=== PATIENT | female | born 1945 | race Caucasian/White ===

== ENCOUNTER 2022-11-07 06:24 | Day surgery (SDC) | payer MEDICARE, OTHER, SELFPAY ==
[2022-11-02 15:55] VITALS: BMI 25.6
--- NOTE | 2022-11-04 08:03 | MHC.SHP ---
Pre-Procedural Eval Section A Date of Service: 11/04/22 The patient is an INPATIENT: No Changes since office visit: No Cold of Flu in the past 2 weeks, No New Medical Problems, No Changes in Medication and No Patient answered all questions The History & Physical has been completed within 30 days and I have reviewed it.: Yes Section B Chief Complaint: Age-related nuclear cataract, right eye Allergies: Allergies Allergy/AdvReac Type Severity Reaction Status Date / Time No Known Allergies Allergy Verified 11/01/22 16:44 Plan Diagnosis/Plan: Unchanged I have reviewed the history and physical and performed a pertinent physical examination on my patient. No changes have occurred unless specified. Time Spent With Patient Time: Total time managing care of this patient today ____ minutes.
[2022-11-07] MEDS: Tetracaine HCl/PF 0.5% Oph Sol 4 ML DROPS 1 DROP EYE-RIGHT (07:03)
[2022-11-07] MEDS: Ketorolac Tromethamine 0.5% Op 5 ML DROPS 1 DROP EYE-RIGHT ×3 (07:03→07:04)
[2022-11-07] MEDS: Cyclopentolate 1 % Ophth Sol 2 ML DRPBTL 1 DROP EYE-RIGHT ×3 (07:03→07:04)
[2022-11-07] MEDS: Tropicamide 1 % Ophth Sol 3 ML BTL 1 DROP EYE-RIGHT ×3 (07:03→07:04)
[2022-11-07] MEDS: Phenylephrine HCL 2.5% Oph SoL 2 ML BOTTLE 1 DROP EYE-RIGHT ×3 (07:04→07:05)
[2022-11-07 07:05] VITALS: BP 147/76; PULSE 67; RESP 20; TEMP 36.1; O2SAT 98
--- NOTE | 2022-11-07 07:18 | P.CONAN_ITS ---
HPI - Anesthesia Eval Consult details Narrative: 77 F for right cataract extraction with intraocular lens insertion [facility] Past Medical History Medical History (Updated 11/01/22 @ 16:42 by Lilia Quiñones RN) History of wrist fracture Cataract Osteoporosis Seasonal allergies Family History Family History (Updated 11/01/22 @ 16:44 by Lilia Quiñones RN) Brother AAA (abdominal aortic aneurysm) Brother AAA (abdominal aortic aneurysm) Brother AAA (abdominal aortic aneurysm) Mother Colon cancer Father Sudden Family history of problems with anesthesia: No Surgical History Surgical History (Updated 11/01/22 @ 16:42 by Lilia Quiñones RN) Hx of appendectomy Hx of colonoscopy History of Problems with Anesthesia: No Social History Social History (Updated 11/02/22 @ 15:58 by Lilia Quiñones RN) Household Members: None Housing: House Are you a primary wound care coordinator to a significant other at home: No Do you presently have visiting nurse or other home services: No Patient Tobacco Use Status: Never used Tobacco Use of substances other than those prescribed or required for medical reasons: No Have you been hit, kicked, punched, or otherwise hurt by someone within the past year? If so, by whom?: No Are you DNR?: No Advance Directives: No Advance Directives Information Provided: Yes Advance Directives on File: No Recently lost weight without trying: No Nutrition Risks: No Nutritional Risk Meds Allergies Allergy/AdvReac Type Severity Reaction Status Date / Time No Known Allergies Allergy Verified 11/01/22 16:44 Active Medications: Current Medications Povidone Iodine (Povidone Iodine 5 % Ophth Soln 30 Ml Bottle) 1 appl EYE-RIGHT PREOP PRN PRN Reason: Pre-Op Surgical Implant Prophy Home Medications Medication Instructions Recorded Confirmed Last Taken Type No Known Home Meds 11/02/22 11/02/22 Unknown History Exam Exam Date and Time: November 07, 202218 Height,Weight and Vital Signs: Height 5 ft 4 in Weight 67.585 kg Last Vital Signs Temp 97 F 11/07/22 07:05 Pulse 67 11/07/22 07:05 Resp 20 11/07/22 07:05 BP 147/76 H 11/07/22 07:05 Pulse Ox 98 11/07/22 07:05 O2 Del Method Room Air 11/07/22 07:05 Airway Mallampati Class: IV Loose/Missing/Broken Teeth: Yes Assessment and Plan Assessment Anesthesia Assessment: Anesthesia Plan Discussed and Chart Reviewed Final Anesthetic Review Family History of Problems with Anesthesia: No History of Problems with Anesthesia: No NPO: Yes ASA Class: I Final Preanesthetic Review: Meds/Allgs Chart Reviewed, Consent Obtained/Reviewed and Anes Risks/Benef Reviewed Patient Risk: Intermediate Procedure Risk: Intermediate Anesthetic Plan Anesthetic Plan: MAC: Disposition: Standard PACU
--- NOTE | 2022-11-07 07:49 | HO.PNOPHT ---
Ophthalmology Procedure Procedure Date of Service: 11/07/22 Ophthalmology Viscoelastic: Healon Duet Dual Pack Pro Ophthalmology Lenses: TECNIS [id number] (21.5) Procedure Notes: PREOPERATIVE DIAGNOSIS: Decreased visual acuity right eye secondary to cataract POSTOPERATIVE DIAGNOSIS: Same PROCEDURE: Right cataract extraction with intraocular lens insertion SURGEON: Georgi Barclay M.D. ANESTHESIA: Topical/MAC ESTIMATED BLOOD LOSS: None COMPLICATIONS: None After obtaining informed consent, the patient was brought to the operating room suite and placed in the supine position. After adequate sedation per anesthesia, topical drops of Tetracaine were given to the right eye. The eye was then prepped and draped in the usual sterile fashion. The operating room microscope was then positioned over the operative eye and a lid speculum placed. A paracentesis was created. Viscoelastic was then instilled into the anterior chamber. A three plane incision was then created temporally, utilizing a 2.85 mm keratome. Capsulotomy forceps were then utilized to create a circular tear capsulotomy. Hydrodissection and hydrodelineation were carried out until adequate mobilization of the nucleus occurred. Phacoemulsification was then utilized to remove the dense central nucleus followed by removal of the cortical material utilizing the automated aspiration irrigation unit. Viscoelastic was instilled into the posterior capsular bag followed by placement of a posterior chamber intraocular lens without difficulty. The residual Viscoelastic was then removed utilizing the automated IA machine. The wound was checked and found to be watertight. The patient tolerated the procedure well and the lid speculum was removed. Intracameral injection of Vigamox 0.1 mL followed by a subtenon injection of Kenalog-40 0.2 mL were administered. The patient will be seen in the a.m.
[2022-11-07 08:12] VITALS: BP 161/82; PULSE 61; RESP 16; TEMP 36.3; O2SAT 99
== END 2022-11-07 08:29 | disposition home or self-care (01) ==
PROVIDERS: PCP Nurse Practitioner Family; Visit Provider Ophthalmology
PROC: (CPT 66985; principal; 2022-11-07 08:00)
DX: H25.11 Age-related nuclear cataract, right eye (principal); H54.7 Unspecified visual loss
CPT/HCPCS: 66984; J2250; J3010; J3301; V2632

== ENCOUNTER 2022-11-21 06:47 | Day surgery (SDC) | payer MEDICARE, OTHER, SELFPAY ==
[2022-11-02 15:58] VITALS: BMI 25.6
--- NOTE | 2022-11-18 07:31 | MHC.SHP ---
Pre-Procedural Eval Section A Date of Service: 11/18/22 The patient is an INPATIENT: No Changes since office visit: No Cold of Flu in the past 2 weeks, No New Medical Problems, No Changes in Medication and No Patient answered all questions The History & Physical has been completed within 30 days and I have reviewed it.: Yes Section B Chief Complaint: Age-related nuclear cataract, left eye Allergies: Allergies Allergy/AdvReac Type Severity Reaction Status Date / Time No Known Allergies Allergy Verified 11/01/22 16:44 Plan Diagnosis/Plan: Unchanged I have reviewed the history and physical and performed a pertinent physical examination on my patient. No changes have occurred unless specified. Time Spent With Patient Time: Total time managing care of this patient today ____ minutes.
--- NOTE | 2022-11-18 10:46 | P.CONAN_ITS ---
Documented by User: Arcelia Baird NP 11/18/22 10:46 HPI - Anesthesia Eval Consult details Narrative: 77yo F for Left Cataract Extraction IOL Insertion PCP cleared Right eye 11/07/22: Fent 50, Midaz 1 PMFSH Past Medical History Medical History (Updated 11/01/22 @ 16:42 by Lilia Quiñones, RN) History of wrist fracture Cataract Osteoporosis Seasonal allergies Family History Family History (Updated 11/01/22 @ 16:44 by Lilia Quiñones RN) Brother AAA (abdominal aortic aneurysm) Brother AAA (abdominal aortic aneurysm) Brother AAA (abdominal aortic aneurysm) Mother Colon cancer Father Sudden Family history of problems with anesthesia: No Surgical History Surgical History (Updated 11/01/22 @ 16:42 by Lilia Quiñones RN) Hx of appendectomy Hx of colonoscopy History of Problems with Anesthesia: No Social History Social History (Updated 11/02/22 @ 15:58 by Lilia Quiñones RN) Household Members: None Housing: House Are you a primary transitional care nurse to a significant other at home: No Do you presently have visiting nurse or other home services: No Patient Tobacco Use Status: Never used Tobacco Use of substances other than those prescribed or required for medical reasons: No Have you been hit, kicked, punched, or otherwise hurt by someone within the past year? If so, by whom?: No Are you DNR?: No Advance Directives: No Advance Directives Information Provided: Yes Advance Directives on File: No Recently lost weight without trying: No Nutrition Risks: No Nutritional Risk Meds Allergies Allergy/AdvReac Type Severity Reaction Status Date / Time No Known Allergies Allergy Verified 11/01/22 16:44 Home Medications Medication Instructions Recorded Confirmed Last Taken Type No Known Home Meds 11/02/22 11/02/22 Unknown History Exam Exam Date and Time: November 18, 2022 1046 Height,Weight and Vital Signs: Height 5 ft 4 in Weight 67.585 kg Assessment and Plan Assessment Anesthesia Assessment: Chart Reviewed Final Anesthetic Review Family History of Problems with Anesthesia: No History of Problems with Anesthesia: No Documented by User: Miguel Bagley MD 11/21/22 07:13 [facility] Past Medical History Medical History (Updated 11/01/22 @ 16:42 by Lilia Quiñones, RN) History of wrist fracture Cataract Osteoporosis Seasonal allergies Family History Family History (Updated 11/01/22 @ 16:44 by Lilia Quiñones, RN) Brother AAA (abdominal aortic aneurysm) Brother AAA (abdominal aortic aneurysm) Brother AAA (abdominal aortic aneurysm) Mother Colon cancer Father Sudden Surgical History Surgical History (Updated 11/01/22 @ 16:42 by Lilia Quiñones, RN) Hx of appendectomy Hx of colonoscopy Social History Social History (Updated 11/02/22 @ 15:58 by Lilia Quiñones, JOSETTE) Household Members: None Housing: House Are you a primary transitional care nurse to a significant other at home: No Do you presently have visiting nurse or other home services: No Patient Tobacco Use Status: Never used Tobacco Use of substances other than those prescribed or required for medical reasons: No Have you been hit, kicked, punched, or otherwise hurt by someone within the past year? If so, by whom?: No Are you DNR?: No Advance Directives: No Advance Directives Information Provided: Yes Advance Directives on File: No Recently lost weight without trying: No Nutrition Risks: No Nutritional Risk Meds Allergies Allergy/AdvReac Type Severity Reaction Status Date / Time No Known Allergies Allergy Verified 11/01/22 16:44 Home Medications Medication Instructions Recorded Confirmed Last Taken Type No Known Home Meds 11/02/22 11/02/22 Unknown History Exam Airway Mallampati Class: II TM Dist: >3cm Neck ROM: Full Loose/Missing/Broken Teeth: No Heart: [id number] Lungs: cta b/l Assessment and Plan Assessment Anesthesia Assessment: Anesthesia Plan Discussed Final Anesthetic Review NPO: Yes ASA Class: II Final Preanesthetic Review: No Changes in Pt Med Stat, Meds/Allgs Chart Reviewed, Consent Obtained/Reviewed and Anes Risks/Benef Reviewed Patient Risk: Low Procedure Risk: Low Assessment/Block/Sedation in SS: Assess/Block/Sedation-SS Anesthetic Plan Anesthetic Plan: MAC: and Agree w/ Assess. and Plan Disposition: Standard PACU
[2022-11-21] MEDS: Tetracaine HCl/PF 0.5% Oph Sol 4 ML DROPS 1 DROP EYE-LEFT (07:27)
[2022-11-21] MEDS: Lactated Ringers 500 ML 50 ML IV (07:27)
[2022-11-21] MEDS: Ketorolac Tromethamine 0.5% Op 5 ML DROPS 1 DROP EYE-LEFT ×3 (07:27→07:39)
[2022-11-21] MEDS: Phenylephrine HCL 2.5% Oph SoL 2 ML BOTTLE 1 DROP EYE-LEFT ×3 (07:28→07:39)
[2022-11-21] MEDS: Cyclopentolate 1 % Ophth Sol 2 ML DRPBTL 1 DROP EYE-LEFT ×3 (07:28→07:39)
[2022-11-21] MEDS: Tropicamide 1 % Ophth Sol 3 ML BTL 1 DROP EYE-LEFT ×3 (07:28→07:39)
[2022-11-21 07:42] VITALS: BP 146/92; PULSE 74; RESP 18; TEMP 36.4; O2SAT 96
--- NOTE | 2022-11-21 08:20 | HO.PNOPHT ---
Ophthalmology Procedure Procedure Date of Service: 11/21/22 Ophthalmology Viscoelastic: Healfransisco Cruzt Dual Pack Pro Ophthalmology Lenses: TECGARRET [id number] (22) Procedure Notes: PREOPERATIVE DIAGNOSIS: Decreased visual acuity left eye secondary to cataract POSTOPERATIVE DIAGNOSIS: Same PROCEDURE: Left cataract extraction with intraocular lens insertion SURGEON: Georgi Barclay M.D. ANESTHESIA: Topical/MAC ESTIMATED BLOOD LOSS: None COMPLICATIONS: None After obtaining informed consent, the patient was brought to the operation room suite and placed in the supine position. After adequate sedation per anesthesia, topical drops of Tetracaine were given to the left eye. The eye was then prepped and draped in the usual sterile fashion. The operating room microscope was then positioned over the operative eye and a lid speculum placed. A paracentesis was created. Viscoelastic was then instilled into the anterior chamber. A three plane incision was then created temporally, utilizing a 2.85 mm keratome. Capsulotomy forceps were then utilized to create a circular tear capsulotomy. Hydrodissection and hydrodelineation were carried out until adequate mobilization of the nucleus occurred. Phacoemulsification was then utilized to remove the dense central nucleus followed by removal of the cortical material utilizing the automated aspiration irrigation unit. Viscoat elastic was instilled into the posterior capsular bag followed by placement of a posterior chamber intraocular lens without difficulty. The residual Viscoat elastic was then removed utilizing the automated IA machine. The wound was check and found to be watertight. The patient tolerated the procedure well and the lid speculum was removed. Intracameral injection of Vigamox 0.1 mL followed by a subtenon injection of Kenalog-40 0.2 mL were administered. The patient will be seen in the a.m.
[2022-11-21 08:40] VITALS: BP 164/92; RESP 16; O2SAT 98
== END 2022-11-21 08:48 | disposition home or self-care (01) ==
PROVIDERS: PCP Nurse Practitioner Family; Visit Provider Ophthalmology
PROC: (CPT 66985; principal; 2022-11-21 08:20)
DX: H25.12 Age-related nuclear cataract, left eye (principal); H52.4 Presbyopia; H04.123 Dry eye syndrome of bilateral lacrimal glands; H43.399 Other vitreous opacities, unspecified eye; Z79.899 Other long term (current) drug therapy; Z87.891 Personal history of nicotine dependence
CPT/HCPCS: 66984; J2250; J3301; V2632